=== PATIENT | female | born 1965 | race Caucasian/White ===

== ENCOUNTER 2023-07-15 15:23 | Inpatient (IN) | payer BC ==
[~2023-07-15] VITALS: Ht 160 cm; Wt 68.0 kg
[2023-07-15 16:27] LABS: BASOPHILS % (AUTO) 0.4 % (0.0-2.0); EOSINOPHILS # (AUTO) 0.1 K/uL (0.0-0.7); EOSINOPHILS % (AUTO) 1.2 % (0.0-6.0); HEMATOCRIT 39 % (33-45); HEMOGLOBIN 13.4 g/dL (11.5-14.8); LYMPHOCYTES # (AUTO) 2.3 K/uL (0.8-4.8); LYMPHOCYTES % (AUTO) 24.5 % (20.0-44.0); MEAN CORPUSCULAR HEMOGLOBIN 30 PG (26.0-33.0); MEAN CORPUSCULAR HGB CONC 34 g/dl (31.0-36.0); MEAN CORPUSCULAR VOLUME 86 fL (82-100); MONOCYTES # (AUTO) 0.4 K/uL (0.1-1.30); MONOCYTES % (AUTO) 4.6 % (2.0-12.0); NEUTROPHILS # (AUTO) 6.5 K/uL (1.8-8.9); NEUTROPHILS % (AUTO) 69.3 % (43.0-81.0); PLATELET COUNT (AUTO) 275 K/uL (150-450); RED BLOOD CELL COUNT(AUTO) 4.53 MIL/uL (4.0-5.2); RED CELL DISTRIBUTION WIDTH 14.5 % (11.5-15.0); WHITE BLOOD COUNT (AUTO) 9.4 K/uL (4.3-11.0)
[2023-07-15] MEDS ORDERED: METOPROLOL TARTRATE 25 MG TABLET PO ONE (16:30)
[2023-07-15] MEDS ORDERED: METOPROLOL TARTRATE INJ 5 MG/5 ML AMPUL IV ONE (16:30)
[2023-07-15] MEDS ORDERED: METOPROLOL TARTRATE 25 MG TABLET ONE (16:48)
[2023-07-15] MEDS ORDERED: METOPROLOL TARTRATE INJ 5 MG/5 ML AMPUL ONE (16:48)
[2023-07-15 16:56] LABS: ALANINE AMINOTRANSFERASE 49 U/L (12-78); ALBUMIN 4.4 g/dL (3.4-5.0); ALKALINE PHOSPHATASE 68 U/L (46-116); ASPARTATE AMINOTRANSFERASE 14 U/L (15-37); BILIRUBIN,DIRECT 0.1 mg/dL (0.0-0.2); BILIRUBIN,TOTAL 0.5 mg/dL (0.2-1.0); CALCIUM, SERUM 8.9 mg/dL (8.5-10.1); CARBON DIOXIDE 25 mmol/L (21-32); CHLORIDE 101 mmol/L (98-107); CREATININE 0.9 mg/dL (0.6-1.3); GLUCOSE 99 mg/dL (74-106); NT-PRO BNP 60 pg/mL (0-125); POTASSIUM 3.1 mmol/L (3.5-5.1); SODIUM SERUM 140 mmol/L (136-145); TOTAL PROTEIN, SERUM 8.1 g/dL (6.4-8.2); UREA NITROGEN, BLOOD 16 mg/dL (7-18)
[2023-07-15] MEDS ORDERED: LAMO100T2 PO (16:58)
[2023-07-15] MEDS ORDERED: DIVA250T PO (16:58)
[2023-07-15] MEDS ORDERED: LEVO88TA2 PO (16:58)
[2023-07-15] MEDS ORDERED: METH36TA PO (16:58)
[2023-07-15] MEDS ORDERED: CETI-90 PO (16:58)
[2023-07-15] MEDS ORDERED: SEMA0.25 SQ (16:58)
[2023-07-15] MEDS ORDERED: CHOL400T PO (16:59)
[2023-07-15] MEDS ORDERED: POTASSIUM CHLORIDE 20 MEQ TAB.PRT.SR PO ONE ×2 (17:30→19:36)
[2023-07-15] MEDS ORDERED: ACETAMINOPHEN 325 MG TABLET PO PRN (17:30)
[2023-07-15] MEDS ORDERED: MAG HYDROX/AL HYDROX/SIMETH 30 ML UDC PO PRN (17:30)
[2023-07-15] MEDS ORDERED: HYDROCODONE/APAP 5/325MG TABLET PO PRN (17:30)
[2023-07-15] MEDS ORDERED: MAGNESIUM HYDROXIDE 30 ML UDC PO PRN (17:30)
[2023-07-15] MEDS ORDERED: ONDANSETRON HCL/PF 4 MG/2 ML VIAL IVP PRN (17:30)
[2023-07-15] MEDS ORDERED: CT SWABBABLE VALVE TRANS SET 1 EA INFUS.SET MC ONE (17:55)
[2023-07-15] MEDS ORDERED: IOHEXOL-350 100 ML VIAL IV ONE (17:55)
[2023-07-15] MEDS ORDERED: IV NS 0.9% 250 ML IV ONE (17:56)
[2023-07-15] MEDS ORDERED: AMIODARONE 150 MG/3 ML VIAL IV ONE ×2 (18:00)
[2023-07-15 18:20] LABS: PHOSPHORUS 3.1 mg/dL (2.5-4.9)
[2023-07-15 18:29] LABS: THYROID STIMULATING HORMONE 0.77 uIU/mL (0.358-3.74)
[2023-07-15] MEDS: POTASSIUM CHLORIDE 20 MEQ TAB.PRT.SR PO SCH ×2 (19:39→20:02)
[2023-07-15] MEDS ORDERED: AMIODARONE 900 MG in IV D5W 482 ML IV PRN (20:00)
[2023-07-15] MEDS ORDERED: AMIODARONE 150 MG in IV D5W 100 ML IV ONE (20:00)
[2023-07-15 20:10] VITALS: BP 126/87; TEMP 98.4; O2SAT 100
[2023-07-15] MEDS: AMIODARONE 450 MG in IV D5W 241 ML IV PRN (20:29)
[2023-07-15] MEDS ORDERED: APIXABAN 5 MG TABLET PO SCH (21:00)
[2023-07-15] MEDS: LamoTRIgine 100 MG TABLET PO SCH (21:30)
[2023-07-15 22:00] VITALS: BP 141/107
[2023-07-15] MEDS: ALPRAZOLAM 0.25 MG TABLET PO PRN (22:23)
[2023-07-15] MEDS ORDERED: LACOSAMIDE ORAL SOLN 50 MG/5 ML UDC ONE (22:27)
[2023-07-15 23:00] VITALS: BP 105/89; O2SAT 95
[2023-07-16] VITALS (19 sets, daily range): BP systolic 78–120; BP diastolic 46–84; TEMP 97.5–98.2; O2SAT 94–98
[2023-07-16] MEDS ORDERED: AMIODARONE 150 MG/3 ML VIAL IV ONE (02:40)
[2023-07-16] MEDS: AMIODARONE 450 MG in IV D5W 241 ML IV PRN (02:48)
[2023-07-16] MEDS ORDERED: ZOLPIDEM TARTRATE 5 MG TABLET PO PRN (03:30)
[2023-07-16 04:45] LABS: CALCIUM, SERUM 8.4 mg/dL (8.5-10.1); CREATININE 0.8 mg/dL (0.6-1.3); MAGNESIUM 1.7 mg/dL (1.8-2.4); PHOSPHORUS 3.9 mg/dL (2.5-4.9); POTASSIUM 3.8 mmol/L (3.5-5.1)
[2023-07-16] MEDS ORDERED: POTASSIUM CHLORIDE 20 MEQ TAB.PRT.SR PO SCH (07:00)
[2023-07-16] MEDS: POTASSIUM CHLORIDE 20 MEQ TAB.PRT.SR PO SCH ×2 (07:10→07:58)
[2023-07-16] MEDS: Magnesium 1GM/D5W 100ML PREMIX 100 ML IV SCH ×2 (07:57→10:11)
[2023-07-16 08:18] LABS: THYROID STIMULATING HORMONE 1.912 uIU/mL (0.358-3.74)
[2023-07-16] MEDS: LamoTRIgine 100 MG TABLET PO SCH ×2 (09:00→17:00)
[2023-07-16] MEDS ORDERED: ASPIRIN 81 MG TAB.CHEW PO SCH (09:00)
[2023-07-16] MEDS ORDERED: DIVALPROEX SODIUM 250 MG TABLET.DR PO SCH (09:00)
[2023-07-16] MEDS ORDERED: LEVOTHYROXINE SODIUM 88 MCG TABLET PO SCH (09:00)
[2023-07-16] MEDS ORDERED: CHOLECALCIFEROL 1,000 UNIT TABLET (VIT D3) PO SCH (09:00)
[2023-07-16] MEDS: ALPRAZOLAM 0.25 MG TABLET PO PRN (13:58)
[2023-07-16] MEDS ORDERED: GADOTERATE MEGLUMINE 10 MMOL/20 ML VIAL IV ONE (17:58)
[2023-07-17 08:06] LABS: CORTISOL SERUM 9.6 ug/dL (6.2-19.4)
[2023-07-17 11:07] LABS: *THYROGLOBULIN 902.4 IU/mL (0.0-0.9)
== END 2023-07-16 21:20 | disposition home or self-care (01) | DRG 282 ==
LOC: ER 15:23 → TELE1 18:07 → ICUOV 20:53 → ICU 21:56
DX: I48.91 Unspecified atrial fibrillation (principal); I21.A1 Myocardial infarction type 2; E03.9 Hypothyroidism, unspecified; G40.909 Epilepsy, unspecified, not intractable, without status epilepticus; E78.5 Hyperlipidemia, unspecified; E87.6 Hypokalemia; I10 Essential (primary) hypertension; Z79.01 Long term (current) use of anticoagulants; Z79.82 Long term (current) use of aspirin; R91.1 Solitary pulmonary nodule; E27.9 Disorder of adrenal gland, unspecified; Z79.899 Other long term (current) drug therapy; Z90.710 Acquired absence of both cervix and uterus; E04.2 Nontoxic multinodular goiter
CPT/HCPCS: 36415; 71045-TC; 74183; 76536-TC; 80048-TC; 80061-TC; 80076-TC; 80164-TC; 82384; 82533; 83735-TC; 83835; 83880; 84100-TC; 84439-TC; 84443-TC; 84484-TC; 85025-TC; 93307-TC; A4223; A9575; G0378; J0282; J3475; J3490; J7050; J7060; Q9967